=== PATIENT | male | born 1990 | race Caucasian/White ===

== ENCOUNTER 2025-03-27 04:32 | Emergency (ER) | payer OTHER, SELFPAY ==
[2025-03-27 04:36] VITALS: BP 115/63; PULSE 53; RESP 20; TEMP 36.4; O2SAT 98; BMI 24.5
[2025-03-27] MEDS: Cyclobenzaprine HCl 10 MG TABLET PO (05:01)
[2025-03-27] MEDS: Ketorolac Tromethamine 60 MG/2 ML VIAL IM (05:02)
--- NOTE | 2025-03-27 05:15 | ED_ITS ---
HPI - Back Pain/Injury General Chief Complaint: Back Pain/Injury Stated Complaint: Back Pain Time Seen by Provider: 03/27/25 05:07 Source: patient Mode of arrival: ambulatory Limitations: no limitations History of Present Illness ED Provider: Dr. Valerie Ba HPI Narrative: Patient comes to the emergency room complaining of a pulled muscle in the right side of his back. Patient states that he has had this issue about 10 years ago. Patient states that yesterday he was playing basketball and pulled a muscle again. Patient states the pain is localized, it is 4/10. However, when he moves a certain way, the pain is worse. Pain does not radiate towards the groin or abdomen. Patient took 600 mg of ibuprofen yesterday with no significant relief. Patient denies any flank pain denies abdominal pain, no hematuria dysuria, no fever chills. Denies IV drug use. Patient denies any other injuries. Denies any urinary / fecal incontinence /retention. Related Data Previous Rx's ?Medication ?Instructions ?Recorded cyclobenzaprine 5 mg tablet 10 mg (2 x 5 mg) PO TID PRN muscle 03/27/25 spasm #12 tabs ketorolac 10 mg tablet 10 mg PO Q8H PRN pain #12 tabs 03/27/25 Allergies Allergy/AdvReac Type Severity Reaction Status Date / Time No Known Allergies Allergy Verified 03/27/25 04:40 Review of Systems Review of Systems: Constitutional : No Weight loss, No Fever, No Chills, No Night Sweats, No Fatigue, No Malaise ENT/Mouth : No Hearing loss, No Ear Pain, No Nasal Congestion, No Sinus Pain, No Hoarseness, No sore throat, No Rhinorrhea, No Swallowing Difficulty Eyes: No Eye Pain, No Swelling, No Redness, No Foreign Body, No Discharge, No Vision Changes Cardiovascular : No Chest Pain, No SOB, No Dyspnea on Exertion, No Orthopnea, No Edema, No Palpitations Respiratory : No Cough, No Sputum, No Wheezing, No Smoke Exposure, No Dyspnea Gastrointestinal : No Nausea, No Vomiting, No Diarrhea, No Constipation, No abdominal Pain, No Hematochezia, No Melena Genitourinary : no irregular bleeding, No Dysuria, No Urinary Frequency, No Hematuria, No Urinary Incontinence, No Urgency, No Flank Pain, No Urinary Flow Changes, No Hesitancy Musculoskeletal : Complaining right middle and lower back pain that gets worse with certain movements.No joint pain, No Myalgias, No Joint Swelling Skin : No Skin Lesions, No rash Neuro : No Weakness, No Numbness, No Paresthesias, No Loss of Consciousness, No Dizziness, No Headache Psych : No Anxiety/Panic, No Depression, No SI/HI/AH/VH, No Social Issues, Heme/Lymph: No Bruising, No Bleeding,No Lymphadenopathy Endocrine : No Polyuria, No Polydipsia, No Temperature Intolerance [facility] Social History Social History Smoked in Last 30 Days: Yes Use of substances other than those prescribed or required for medical reasons: Yes Substance Use Type: Marijuana Advance Directives: No Advance Directives Information Provided: Yes Do you have a plan to hurt others: No Plan Physical Exam Vital Signs: Vital Signs: Last Vital Signs Temp 97.5 F 03/27/25 04:36 Pulse 53 03/27/25 04:36 Resp 20 03/27/25 04:36 BP 115/63 03/27/25 04:36 Pulse Ox 98 03/27/25 04:36 O2 Del Method Room Air 03/27/25 04:36 BMI result Body Mass Index 24.5 Const: Other: Appearance: Alert. Oriented X3. No acute distress. Eyes: Pupils equal, round and reactive to light. ENT: Pharynx normal. Neck: Normal inspection. Neck supple. No lymph nodes noted. No crepitus CVS: Normal heart rate and rhythm. Pulses normal. Normal S1 and S2 Respiratory: No respiratory distress. Breath sounds normal. No Wheezing. No rales Abdomen: Soft and nontender. No rigidity. No distention. Back: Pain to palpation over the paraspinal muscles on the right side. No flank pain. Skin: Skin warm and dry. Normal skin color. Normal skin turgor. Extremities: No lower extremity edema. No Lacerations. No Rash Neuro: Oriented X 3. No motor deficit. No sensory deficit. Moving all extremities. No slurred speech. CN 2 through 12 grossly intact Psych: calm, cooperative, normal affect Course Course Course Narrative: Patient comes in complaining of a pulled muscle. Given patient's physical exam and history, this is likely a musculoskeletal injury. CT scan /x-rays are not indicated at this time. Patient was given ketorolac, p.o. diazepam and cyclobenzaprine. 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 But he will look for 1 through his insurance. I discussed with the patient that it is likely that he may need physical therapy if he does not have any significant improvement with the back pain within the next 2-3 days. At this time, there is no suspicion for cauda equina, herniated discs or sciatica. Differential Diagnosis Differential Diagnoses: The differential diagnosis associated with the presentation includes ( As above) Discharge Plan Discharge Clinical Impression: Strain of lumbar paraspinal muscle Patient Disposition: Home, Self-Care Instructions: Muscle Strain (ED), Back Pain (ED), P.R.I.C.E. Treatment (ED) Additional Instructions: Please follow-up with your primary care physician tomorrow. If you have any worsening or new symptoms, please return to the emergency room or call 911 Prescriptions: New ketorolac 10 mg tablet 10 mg PO Q8H PRN (Reason: pain) Qty: 12 0RF Rx Instructions: do not use ibuprofen, naproxen or any NSAID with his medication, only Tylenol and muscle relaxant of cyclobenzaprine 5 mg tablet 10 mg PO TID PRN (Reason: muscle spasm) Qty: 12 0RF Rx Instructions: do not drive after taking this medication. It may make you feel drowsy Print Language: Argentine
[2025-03-27] MEDS: diazePAM 2 MG TABLET PO (05:21)
[2025-03-27 05:24] VITALS: BP 105/60; PULSE 50; RESP 18; TEMP 36.5; O2SAT 98
[2025-03-27 05:32] VITALS: RESP 16
== END 2025-03-27 05:39 | disposition home or self-care (01) ==
PROVIDERS: Emergency Provider Emergency Medicine
DX: S39.012A Strain of muscle, fascia and tendon of lower back, initial encounter (principal); R10.30 Lower abdominal pain, unspecified; X58.XXXA Exposure to other specified factors, initial encounter; Y93.9 Activity, unspecified; Y92.9 Unspecified place or not applicable; Y99.8 Other external cause status
CPT/HCPCS: 96372; 99284; J1885